=== PATIENT | male | born 1965 | race African-American/Black ===

== ENCOUNTER 2019-12-03 11:16 | Emergency (ER) | payer OTHER ==
[~2019-12-03] VITALS: Ht 170.2 cm; Wt 154.2 kg
[~2019-12-03 11:16] MED LIST: ATENOLOL50 MG PO; CRESTOR10 MG PO; CYMBALTA20 MG PO; DOXEPIN HCL25 MG PO; HUMULIN R100 UNIT/2 SC; JARDIANCE25 MG PO; LINZESS145 MCG PO; MINIPRESS1 MG PO; OMEPRAZOLE40 MG PO; TADALAFIL5 MG PO; TRAZODONE HCL50 MG PO; TRESIBA100 UNIT/1 SC; VICTOZA 3-0.6 MG/0.1 SC; VIT D2 PO
[2019-12-03 11:48] LABS: BASOPHILS % 0.5 % (0.0-1.0); EOSINOPHILS % 0.6 % (0.0-6.0); HEMATOCRIT 48.9 % (38.2-49.6); HEMOGLOBIN 15.4 g/dL (14.0-18.0); LYMPHOCYTES # (AUTO) 1.7 (1.0-3.2); LYMPHOCYTES % 27.6 % (18.0-39.1); MEAN CORPUSCULAR HGB CONC 31.5 g/dL (31-35); MEAN CORPUSCULAR VOLUME 82.5 fL (81-99); MONOCYTES # (AUTO) 0.4 (0.2-0.8); MONOCYTES % 6.4 % (4.4-11.3); NEUTROPHILS % 64.7 % (38.7-80.0); PLATELET COUNT 162 x10e3/uL (140-360); RED BLOOD COUNT 5.93 x10e6/uL (4.3-5.7)
[2019-12-03 12:08] LABS: ALBUMIN 3.8 g/dL (3.5-5.0); ALBUMIN/GLOBULIN RATIO 0.9 (0.8-2.0); ANION GAP 10.3 mmol/L (8-16); CALCIUM 9.2 mg/dL (8.4-10.2); CREATININE, SERUM 1.52 mg/dL (0.72-1.25); POTASSIUM 4.3 mmol/L (3.5-5.1)
--- NOTE | 2019-12-03 12:12 | Emergency Department Note ---
History of Present Illnes History of Present Illness Chief Complaint: Chest Pain History of Present Illness This is a 54 year old male arrives to the ED for preop testing for his colonoscopy. Patient was receiving EKG when the EKG machine read the strip as a STEMI- Patient denies any complaints of chest pain, shortness of breath or exertional/resting dyspnea. 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 Any updates have been documented here. Past Medical History Clinical Suspicion of Infectio: No New/Unexplained Change in Ment: No Past Medical History: Hypertension, Diabetes Social History Smoking Cessation: Never Smoker Alcohol Use: Social Any Illegal Drug Use: No TB Exposure/Symptoms: No Physically hurt or threatened: No Family History Family history of heart diseas: Yes Other Any Pre-Existing Lines (PICC,: No Is patient up to date on immun: Yes Review of Systems Review of Systems Constitutional: no symptoms EENTM: no symptoms Cardiovascular: no symptoms Respiratory: no symptoms Gastrointestinal: no symptoms Genitourinary: no symptoms Musculoskeletal: no symptoms Neurological: no symptoms Psychological: no symptoms Endocrine: no symptoms Hematological/Lymphatic: no symptoms Review of other systems All other systems reviewed and negative. Physical Exam Related Data Allergies: Coded Allergies: lisinopril (Verified Allergy, Severe, 12/02/19) LIP AND TONGUE SWELLS Vital signs reviewed: Yes Physical Exam CONSTITUTIONAL Constitutional: well-developed, well-nourished, obese HENT HENT: normocephalic, atraumatic, oropharynx clear/moist, nose normal HENT L/R: left ext ear normal, right ext ear normal EYES Eyes: PERRL, conjunctivae normal NECK Neck: ROM normal PULMONARY Pulmonary: effort normal, breath sounds normal CARDIOVASCULAR Cardiovascular: regular rhythm, heart sounds normal, capillary refill normal, normal rate GASTROINTESTINAL Abdominal: soft, nontender, bowel sounds normal GENITOURINARY Genitourinary: exam deferred SKIN Skin: warm, dry MUSCULOSKELETAL Musculoskeletal: ROM normal NEUROLOGICAL Neurological: alert, oriented x 3, no gross motor or sensory deficits PSYCHOLOGICAL Psychological: mood/affect normal, judgement normal Results Laboratory Laboratory Laboratory Tests Test 12/03/19 11:26 Lab results reviewed: Yes Imaging Imaging results reviewed: Yes Procedures 12 Lead ECG Interpretation Prior [employer] tracings: reviewed Rhythm: sinus rhythm QRS axis: normal ST segments normal: Yes Clinical Impression: normal ECG Critical Care Time Subsequent provider I assumed direction of critical care for this patient from another provider of my specialty. Assessment & Plan Assessment & Plan Final Impression: (1) ABNORMAL ELECTROCARDIOGRAM [ECG] [EKG] Assessment & Plan Basic preop labs and follow-up with outpatient PCP Patient noted to have elevated CPK, 2 L IV fluids done and repeat CBC performed, improvement noted. Patient given outpatient cardiology follow-up for further workup Depart Disposition: HOME, SELF-[facility] Meds Reported Medications Empagliflozin (Jardiance) 25 Mg Tablet, PO DAILY 12/02/19 Tadalafil (Tadalafil) 5 Mg Tablet, PO DAILY 12/02/19 Linaclotide (Linzess) 145 Mcg Capsule, PO DAILY 12/02/19 Rosuvastatin Calcium (CRESTOR) 10 Mg Tab, 40 MG PO DAILY THERAPEUTICALLY SUBSTITUTED WITH SIMVASTATIN 40MG 12/02/19 Duloxetine Hcl (CYMBALTA) 20 Mg Capcr, 20 MG PO DAILY, #30 CAP 12/02/19 Doxepin Hcl (DOXEPIN HCL) 25 Mg Capsule, 25 MG PO HS, #30 CAP 12/02/19 [Vit D2] No Conflict Check, PO WEEKLY 12/02/19 Prazosin Hcl (MINIPRESS) 1 Mg Capsule, 1 MG PO HS, CAP 12/02/19 Trazodone Hcl (TRAZODONE HCL) 50 Mg Tablet, 100 MG PO HS, #30 TAB 12/02/19 Omeprazole (OMEPRAZOLE) 40 Mg Capsule.dr, 40 MG PO DAILY 12/02/19 Atenolol (ATENOLOL) 50 Mg Tablet, 100 MG PO HS 12/02/19 Insulin Degludec (Tresiba) 100 Unit/1 Ml Vial, 45 UNITS SC DAILY 12/02/19 Insulin Regular, Human (HUMULIN R) 100 Unit/1 Ml Vial, 135 UNITS SC BID 12/02/19 Liraglutide (VICTOZA 3-TAMIKA) 0.6 Mg/0.1 Ml Pen.injctr, SC DAILY 12/02/19 BRAD PETERS DO Dec 03, 2019 12:29
[2019-12-03 12:14] LABS: CREATINE KINASE MB 1.9 ng/mL (0-5.0)
--- NOTE | 2019-12-03 13:03 | Diagnostic Imaging Report ---
EXAM: CHEST SINGLE (PORTABLE) DATE: 12/03/2019 12:30 PM INDICATION: Chest pain COMPARISON: None FINDINGS: The trachea is midline. The lungs are symmetrically expanded without evidence for large focal consolidation, pneumothorax, or significant pleural effusion. The cardiomediastinal silhouette appears mildly prominent which may be secondary to technique. The pulmonary vasculature is not engorged. No acute osseous abnormality is identified. IMPRESSION: No acute cardiopulmonary process identified. Signed by: Dr. Chao Munoz MD on 12/03/2019 1:00 PM
[2019-12-03] MEDS ORDERED: SODIUM CHLORIDE 0.9% 1000ML 1,000 ML IV STA ×2 (13:17)
[2019-12-03 14:22] LABS: AMPHETAMINES SCREEN,URINE NEGATIVE (NEGATIVE); BENZODIAZEPINES SCREEN,URINE NEGATIVE (NEGATIVE); PHENCYCLIDINE SCREEN,URINE NEGATIVE (NEGATIVE)
--- NOTE | 2019-12-03 15:02 | NUR ---
COVID SWAB DONE PER MD ORDER
[2019-12-03 17:15] VITALS: BP 177/83
[2019-12-03 17:55] LABS: CREATINE KINASE 651 IU/L (30-200)
== END 2019-12-03 17:27 | disposition home or self-care (01) ==
LOC: ER 11:16
DX: R94.31 Abnormal electrocardiogram [ECG] [EKG] (principal); Z01.84 Encounter for antibody response examination; E66.01 Morbid (severe) obesity due to excess calories
CPT/HCPCS: 36415; 71045; 80053; 80307; 82550; 82553; 83880; 84484; 85025; 87635; 99284; J7030

== ENCOUNTER → 2019-12-08 | Day surgery (SDC) | payer OTHER ==
[~2019-12-08] MED LIST changes: +FENTANYL CITRATE/PF 100MCG/2 ML INJ ONE; +INSULIN REGULAR, HUMAN 100 UNIT/1 ML 3ML VIAL ONE; +LIDOCAINE HCL 2% LOCAL INJ 5 ML SDV VIAL INJ ONE; +MIDAZOLAM HCL 2 MG/2 ML VIAL ONE; +PROPOFOL IV EMULSION 10 MG/ML 20 ML VIAL ONE
[2019-12-08 13:30] VITALS: BP 137/78
== END | disposition home or self-care (01) ==
LOC: OR 09:58
PROVIDERS: ATTEND Internal Medicine Gastroenterology
DX: K29.50 Unspecified chronic gastritis without bleeding (principal); D12.2 Benign neoplasm of ascending colon; D12.3 Benign neoplasm of transverse colon; D12.4 Benign neoplasm of descending colon; K58.1 Irritable bowel syndrome with constipation; K21.9 Gastro-esophageal reflux disease without esophagitis; K57.30 Diverticulosis of large intestine without perforation or abscess without bleeding; K64.8 Other hemorrhoids; K44.9 Diaphragmatic hernia without obstruction or gangrene; Q85.8 Other phakomatoses, not elsewhere classified; M19.90 Unspecified osteoarthritis, unspecified site; G47.33 Obstructive sleep apnea (adult) (pediatric); I10 Essential (primary) hypertension; E66.01 Morbid (severe) obesity due to excess calories; E11.9 Type 2 diabetes mellitus without complications; R74.8 Abnormal levels of other serum enzymes; Z88.8 Allergy status to other drugs, medicaments and biological substances; Z01.810 Encounter for preprocedural cardiovascular examination; Z79.4 Long term (current) use of insulin
CPT/HCPCS: 36415; 43239; 45384; 45385; 82948; 93005; J2001; J2704; 45378; J1817; J2250; J3010

== ENCOUNTER → 2025-03-25 | Outpatient (REF) | payer OTHER ==
[~2025-03-25] MED LIST changes: -FENTANYL CITRATE/PF 100MCG/2 ML INJ ONE; -INSULIN REGULAR, HUMAN 100 UNIT/1 ML 3ML VIAL ONE; -LIDOCAINE HCL 2% LOCAL INJ 5 ML SDV VIAL INJ ONE; -MIDAZOLAM HCL 2 MG/2 ML VIAL ONE; -PROPOFOL IV EMULSION 10 MG/ML 20 ML VIAL ONE
== END ==
LOC: US 09:37
PROVIDERS: ATTEND Internal Medicine Gastroenterology
DX: R74.8 Abnormal levels of other serum enzymes (principal)
CPT/HCPCS: 76705

== ENCOUNTER → 2025-04-19 | Outpatient (REF) | payer OTHER ==
[~2025-04-19] MED LIST changes: +IOPAMIDOL 370 MG/ML 100 ML INFUS..BTL INJ ONE
[2025-04-19 10:45] LABS: EST GLOMERULAR FILTRATION RATE 59.0 ML/MIN (>=60)
== END ==
LOC: CT 09:30
PROVIDERS: ATTEND Nurse Practitioner Family
DX: R10.9 Unspecified abdominal pain (principal)
CPT/HCPCS: 36415; 74177; 82565; 84520; Q9967